=== PATIENT | male | born 1950 | race Caucasian/White ===

== ENCOUNTER 2016-10-28 20:17 | Emergency (ER) | payer MEDICARE, OTHER ==
[~2016-10-28] VITALS: Ht 175.3 cm; Wt 104.5 kg
[~2016-10-28 20:17] MED LIST: AMIT10TA6 PO; CHOL100094 PO; FLUT16SP2 NS; GLUC1CAP PO; IBUP-1827 PO; KETO120S3 TP; LORA10TA73 PO; MULT-285 PO; OMEG500C3 PO; PANT40TA2 PO; PRAM0.5T3 PO; PREG150C PO; SILD100T PO; UBID30CA12 PO; VENL37.53 PO
[2016-10-28 20:24] VITALS: BP 124/85; PULSE 86; RESP 18; O2SAT 97
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
[2016-10-28 20:56] LABS: BASOPHILS % (AUTO) 0.3 % (0-3); EOSINOPHILS % (AUTO) 1.9 % (0-5); MONOCYTES % (AUTO) 10.9 % (4-12); Mean Corpuscular Hemoglobin 30.6 pg (27.0-35.0); Mean Corpuscular Volume 90.2 fL (81-100); NEUTROPHILS % (AUTO) 60.1 % (40-74); Platelet Count 231 bil/L (150-400)
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
[2016-10-28] MEDS ORDERED: fentaNYL-PF 50 mCg/mL 2 mL Inj IVPUSH PRN (21:15)
[2016-10-28 21:22] LABS: INR 0.97 ratio
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
[2016-10-29] MEDS ORDERED: _HYDROcodone/APAP 5-325 mg Tablet PO PRN
[2016-10-29 01:13] VITALS: BP 123/76; PULSE 72; RESP 16; O2SAT 95
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
== END 2016-10-29 01:07 | disposition home or self-care (01) ==
LOC: SED 20:17
DX: S20.211A Contusion of right front wall of thorax, initial encounter (principal); S39.81XA Other specified injuries of abdomen, initial encounter; V47.5XXA Car driver injured in collision with fixed or stationary object in traffic accident, initial encounter; Y93.89 Activity, other specified; Y92.410 Unspecified street and highway as the place of occurrence of the external cause; Y99.8 Other external cause status; Z87.891 Personal history of nicotine dependence
CPT/HCPCS: 36415; 70450; 71010; 71260; 72125; 74177; 80053; 84484; 85025; 85610; 93005; 96374; 99285; J3010; Q9967